=== PATIENT | female | born 1955 ===

== ENCOUNTER → 2021-10-14 | Outpatient (CLI) | payer OTHER ==
[~2021-10-14] MED LIST: NON FORMULARY ITEM IM ONE
[2021-10-14 14:00] VITALS: BP 117/72
--- NOTE | 2021-10-14 14:24 | NUR ---
Patient arrived to the unit via ambulation unaccompanied. Patient was placed in room 119. Vitals signs were taken and all are WNL. Patient is seated in recliner alert and oriented with call light in reach. Injections were administered in BL gluteus medius. Patient was observed for the first 20 mins with no adverse reaction noted. Patient will remain here for observation for a total of 60 mins. [facility]
== END | disposition home or self-care (01) ==
LOC: OPINF 13:45
PROVIDERS: ATTEND Internal Medicine Hematology & Oncology
DX: Z23 Encounter for immunization (principal); U07.1 COVID-19; C91.10 Chronic lymphocytic leukemia of B-cell type not having achieved remission
CPT/HCPCS: 96372; M0220